=== PATIENT | male | born 1970 | race Caucasian/White ===

== ENCOUNTER 2017-05-20 23:39 | Observation (INO) | payer SELFPAY ==
[2017-05-20 23:41] VITALS: BP 119/69; PULSE 81; RESP 16; TEMP 98.6
[2017-05-21 00:08] LABS: AUTOMATED NEUTROPHIL # 8.3 TH/MM3 (1.8-7.7); BASOPHIL # 0.1 TH/MM3 (0-0.2); EOSINOPHIL # 0.5 TH/MM3 (0-0.4); EOSINOPHIL % 3.9 % (0.0-4.0); HEMATOCRIT 33.6 % (39.0-51.0); LYMPH % 21.8 % (9.0-44.0); LYMPHOCYTE # 2.7 TH/MM3 (1.0-4.8); MEAN CELL VOLUME 98.5 FL (80.0-100.0); MEAN CORPUSCULAR HEMOGLOBIN 33.4 PG (27.0-34.0); MEAN CORPUSCULAR HGB CONC 33.9 % (32.0-36.0); NEUT % 66.3 % (16.0-70.0); PLATELET COUNT 178 TH/MM3 (150-450); RED BLOOD COUNT 3.41 MIL/MM3 (4.50-5.90); RED CELL DISTRIBUTION WIDTH 12.8 % (11.6-17.2); WHITE BLOOD COUNT 12.6 TH/MM3 (4.0-11.0)
[2017-05-21 00:09] LABS: HEMO FLAGS AUTO DIFF
[2017-05-21] MEDS ORDERED: MORPHINE SULFATE 8 MG/ML INJ IV PUSH ONE (00:15)
[2017-05-21] MEDS ORDERED: IOHEXOL 350 MG/ML 10 ML VIAL (for RAD DIAG) IV ONE (00:29)
[2017-05-21 00:30] LABS: BICARBONATE 24.1 MEQ/L (21.0-32.0); POTASSIUM 3.7 MEQ/L (3.5-5.1)
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
[2017-05-21 00:44] LABS: CALCIUM-PROTEIN CORRECTED 7.9 MG/DL (8.5-10.1)
[2017-05-21 00:54] VITALS: BP 134/85; PULSE 85; RESP 18; O2SAT 98
[2017-05-21 00:55] LABS: SCAN/DIFF AUTO DIFF CONFIRMED
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
[2017-05-21] MEDS ORDERED: LIDOCAINE HCL 1% PF 30 ML VIAL SQ ONE (01:00)
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
[2017-05-21 03:15] VITALS: BP 109/69; PULSE 75; RESP 16; O2SAT 95
--- NOTE | 2017-05-21 03:31 | RADRPT ---
EXAM DATE/TIME: 05/21/2017 02:59 [facility] COMPARISON: No previous studies available for comparison. INDICATIONS : Checking for possible break due to redness and swelling in hand. MEDICAL HISTORY : None. SURGICAL HISTORY : None. ENCOUNTER: Initial ACUITY: 1 day PAIN SCORE: 5/10 LOCATION: Left Hand. FINDINGS: Remote fracture deformity fifth metacarpal with mild volar angulation. Three view examination of the left hand demonstrates no soft tissue swelling, dislocation, or fractur e. The carpal bones appear intact. The interphalangeal and metacarpophalangeal joints are intact. Bony mineralization is normal. CONCLUSION: 1. There is a remote fracture deformity of the fifth metacarpal. Otherwise unremarkable. Jt Plascencia MD on May 21, 2017 at 3:28 Board Certified Radiologist. This report was verified electronically.
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
[2017-05-21 03:59] LABS: INTERNATIONAL NORMALIZED RATIO 0.9 RATIO; PROTHROMBIN TIME - PATIENT 10.4 SEC (9.8-11.6)
[2017-05-21] MEDS ORDERED: HYDROmorphone HCL 2 MG TAB PO PRN (04:00)
[2017-05-21] MEDS ORDERED: MORPHINE SULFATE 4 MG/ML INJ IV PRN (04:00)
[2017-05-21] MEDS ORDERED: ACETAMINOPHEN 1000 MG/100 ML VIAL IV ONE (04:09)
[2017-05-21] MEDS ORDERED: HEPARIN SODIUM - IV 10,000 UNITS/10 ML VIAL ONE (04:23)
[2017-05-21] MEDS ORDERED: THROMBIN (TOPICAL) 20,000 UNIT SPRAY KIT ONE (04:23)
[2017-05-21] MEDS ORDERED: PROTAMINE SULFATE 50 MG/5 ML VIAL ONE (04:45)
[2017-05-21] MEDS ORDERED: ceFAZolin 2 GM PREMIX 50 ML ONE (04:45)
[2017-05-21] MEDS ORDERED: BUPIVACAINE HCL PF 0.5% 30 ML VIAL ONE (05:44)
[2017-05-21] MEDS ORDERED: BUPIVACAINE HCL PF 0.5% 30 ML VIAL INFIL ONE (05:47)
--- NOTE | 2017-05-21 06:01 | HHI.PR ---
Immediate Post Op Note Procedure Date: May 21, 2017 Pre Op Diagnosis: radial artery laceration with pseudoaneurysm Post Op Diagnosis: radial and interosseus artery pseudoaneurysms Surgeon: Mo Michelle Caretaker Grounds(s): Phoenix Sexton Procedure: Ligation of radial artery and interosseus artery Findings: large pseudoaneurysm of radial and interosseus arteries Additional Information: palpable ulnar pulse Strong palmar arch Doppler signal + radial Doppler signal Complications: none apparent Specimen(s) removed: none for pathology Estimated blood loss: 150mL Anesthesia: General Drains: None Fluids: 1000mL IVF Patient Condition: Good Date/Time of Procedure: SEE SURGICAL CARE RECORD Mo Michelle MD May 21, 2017 06:01
[2017-05-21] MEDS ORDERED: DO NOT ADM ANY ANTICOAGULANT DRUGS PRN (06:30)
[2017-05-21] MEDS: FAMOTIDINE 20 MG TAB PO SCH ×2 (09:00→20:31)
[2017-05-21] MEDS: ASPIRIN 81 MG CHEW TAB PO SCH (09:00)
--- NOTE | 2017-05-21 09:18 | HHI.FF ---
Face to Face Verification Diagnosis: (1) Radial artery injury Physical Therapy Order: Evaluate and Treat, Strength and gait training Instructions: S/P radial artery laceration repair Home Health Nursing Order: Medical education Signs/symptoms of disease process Wound care and dressing changes I have seen patient Donavan Guerrero on 05/21/17. My clinical findings support the need for the requested home health care services because: Pt is s/o radial artery laceration repair and will need outpatient services for optimal healing and best outcome post operatively. Limited ability to care for self Infection w/ risk of complications I certify that my clinical findings support that this patient is homebound because: Pt is s/o radial artery laceration repair and will need outpatient services for optimal healing and best outcome post operatively. Post-op weakness Pt will need out patient physical therapy for optimal healing and best outcome post operatively PT EVAL/Treat Asya Veliz May 21, 2017 09:18
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
[2017-05-21] MEDS ORDERED: PROPOFOL 200 MG/20 ML AMP IV ONE (12:23)
[2017-05-21] MEDS ORDERED: NEOSTIGMINE 3 MG/3 ML SYR IV ONE (12:23)
[2017-05-21] MEDS ORDERED: LACTATED RINGER'S 1000 ML INJ 1,000 ML IV ONE (12:24)
[2017-05-21] MEDS ORDERED: PHENYLEPH/NS 1000 MCG/10 ML SYR IV ONE (12:24)
[2017-05-21] MEDS ORDERED: ONDANSETRON HCL 4 MG/2 ML VIAL IV PUSH ONE (12:24)
[2017-05-21 15:32] VITALS: BP 131/77; PULSE 81; RESP 18; TEMP 99.9; O2SAT 97
[2017-05-21 22:00] VITALS: BP 158/84; PULSE 104; RESP 15; TEMP 99.2; O2SAT 97
[2017-05-22] VITALS: BP 143/82; PULSE 90; RESP 17; TEMP 99.4; O2SAT 95
[2017-05-22 04:00] VITALS: BP 155/90; PULSE 83; RESP 16; TEMP 98.1; O2SAT 95
[2017-05-22] MEDS ORDERED: ENOXAPARIN SODIUM 30 MG/0.3 ML SYRINGE SQ SCH (05:00)
[2017-05-22 08:00] VITALS: BP 131/82; PULSE 78; RESP 18; TEMP 97.8; O2SAT 95
--- NOTE | 2017-05-22 08:35 | PD.VS.PN ---
Subjective POD #: 1 Procedure(s): L arm radial artery ligation, hematoma evaculation Subjective/Hospital Course pain controlled and motor exam L UE only limited by pain and swelling Objective Vitals/I&O Date Time Temp Pulse Resp B/P Pulse Ox O2 Delivery O2 Flow Rate FiO2 05/22/17 04:00 98.1 83 16 155/90 95 05/22/17 00:00 99.4 90 17 143/82 95 05/21/17 22:00 99.2 104 15 158/84 97 05/21/17 15:32 99.9 81 18 131/77 97 05/21/17 12:00 98.1 76 16 146/68 98 Nasal Cannula 2 Exam: Palpable ulnar pulse good strength including flexion of digits on radial and ulnar distribution incision intact Assessment and Plan Plan looks good continue compression d/c today. Discharge Planning d/c today RTC 2 weeks with Mo Guzmán MD May 22, 2017 08:35
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
[2017-05-22] MEDS: ASPIRIN 81 MG CHEW TAB PO SCH (09:16)
[2017-05-22] MEDS: FAMOTIDINE 20 MG TAB PO SCH (09:16)
== END 2017-05-22 10:42 | disposition home or self-care (01) ==
LOC: NEPC 23:39 → INTOOBSV 05-21 03:25 → NEDA 05-21 03:25 → UNDOADMOB 05-21 03:25 → N06A 05-21 13:01 → NEDA 05-21 13:01 → N06A 05-21 18:26 → UNDODISOB 05-22 10:42
PROVIDERS: ADMIT Surgery; ATTEND Surgery
DX: I72.1 Aneurysm of artery of upper extremity (principal); S55.112A Laceration of radial artery at forearm level, left arm, initial encounter; S51.812A Laceration without foreign body of left forearm, initial encounter; D72.829 Elevated white blood cell count, unspecified; F10.129 Alcohol abuse with intoxication, unspecified; I95.9 Hypotension, unspecified; F17.200 Nicotine dependence, unspecified, uncomplicated; W25.XXXA Contact with sharp glass, initial encounter
CPT/HCPCS: 01840; 37618; 73090; 73130; 73206; 80048; 80307; 84155; 85025; 85610; 85730; 86850; 86900; 86901; 96374; 97162; 99291; C1757; G0378; G8987; G8988; J0131; J0690; J1644; J1650; J2270; J2370; J2405; J2710; J2720; J3010; J7120; Q9967